=== PATIENT | female | born 1960 | race Two or more races ===

== ENCOUNTER 2023-11-07 08:23 | Outpatient (CLI) | payer OTHER ==
[~2023-11-07 08:23] MED LIST: TOPROL XL25 MG PO
== END 2023-11-07 08:27 | disposition home or self-care (01) ==
LOC: SONOGRAMA 08:23
PROVIDERS: ATTEND Pathology Anatomic Pathology & Clinical Pathology
DX: D34 Benign neoplasm of thyroid gland (principal); E07.89 Other specified disorders of thyroid